=== PATIENT | male | born 1960 | race Caucasian/White ===

== ENCOUNTER → 2020-07-28 07:09 | Outpatient (CLI) | payer BC, SELFPAY ==
[2020-07-28 19:10] LABS: SARS-CoV-2 RNA PCR Negative
== END ==
PROVIDERS: PCP Family Medicine; Visit Provider Surgery
DX: Z01.812 Encounter for preprocedural laboratory examination (principal); Z20.822 Contact with and (suspected) exposure to COVID-19
CPT/HCPCS: C9803; U0003; U0005

== ENCOUNTER 2020-07-31 14:00 | Outpatient (CLI) | payer BC, SELFPAY ==
--- NOTE | 2020-07-31 11:00 | ECG_ITS ---
Measurements Intervals [place] Rate: 72 P: 47 TN: 167 QRS: 1 QRSD: 113 T: -2 QT: 373 QTc: 410 Interpretive Statements SINUS RHYTHM BORDERLINE R WAVE PROGRESSION, ANTERIOR LEADS INFERIOR INFARCT, AGE INDETERMINATE BASELINE ARTIFACT- I, II, AVR, AVL ABNORMAL ECG Electronically Signed On 07-31-2020 11:00:04 PEDIATRIC PSYCHIATRIST by Rodrigo Donald D.O.
== END 2020-07-31 14:01 ==
LOC: ANHSURGERY 08-20 14:01
PROVIDERS: PCP Family Medicine; Visit Provider Surgery
DX: Z01.818 Encounter for other preprocedural examination (principal); I10 Essential (primary) hypertension; R94.31 Abnormal electrocardiogram [ECG] [EKG]
CPT/HCPCS: 93005

== ENCOUNTER 2020-08-01 00:54 | Day surgery (SDC) | payer BC, SELFPAY ==
[2020-07-30 15:11] VITALS: BMI 35.3
[2020-08-01] VITALS (7 sets, daily range): BP systolic 99–152; BP diastolic 74–86; PULSE 65–83; RESP 8–20; TEMP 36.1–36.3; O2SAT 96–97
[2020-08-01] MEDS: LACTATED RINGERS 1,000 ML 30 ML IV CONT (07:20)
--- NOTE | 2020-08-01 07:56 | WPDANESEPPF ---
Anes - Initial Pre Proc Eval Procedure: Operation Date: 08/01/20 08:30 Proposed Procedures p Incision And Drainage Of Complicated Pilonidal Cyst With Abscess - Flako Richardson MD Date/Time: 08/01/20 07:56 Surgeon: Flako Richardson MD Pre Op Diagnosis: Pilonidal Cyst Patient Data Age: 59 Gender: M Height: 5 ft 7 in Weight: 102.3 kg Allergies Allergy/AdvReac Type Severity Reaction Status Date / Time No Known Allergies Allergy Verified 07/30/20 15:06 Home Medications Medication Instructions Recorded Confirmed Type adalimumab 40 mg/0.8 mL 40 mg SUBCUT ONCE 07/13/20 07/30/20 History subcutaneous syringe kit allopurinol 300 mg tablet 300 mg PO DAILY 07/13/20 07/30/20 History amlodipine 10 mg tablet 10 mg PO DAILY 07/13/20 07/30/20 History atorvastatin 20 mg tablet 20 mg PO DAILY 07/13/20 07/30/20 History celecoxib 200 mg capsule 200 mg PO DAILY 07/13/20 07/30/20 History dicyclomine 20 mg tablet 20 mg PO BID PRN 07/13/20 07/30/20 History metoprolol succinate 50 mg 50 mg PO DAILY 07/13/20 07/30/20 History tablet,extended release 24 hr nortriptyline 10 mg capsule 10 mg PO HS 07/13/20 07/30/20 History Patient hx anesthesia problems: none Family hx anesthesia problems: none PMFSH Past Medical History Medical History (Updated 08/01/20 @ 07:46 by Elfego Adkins MD) GERD (gastroesophageal reflux disease) Gout History of kidney stones Hyperlipidemia Hypertension IBS (irritable bowel syndrome) Psoriasis Surgical History Surgical History History of arthroscopic knee surgery History of colonoscopy History of endoscopy Family History Family History Father Acute myocardial infarction Mother Hypertension Social History Social History Smoking status: Never smoker Tobacco type: cigars Alcohol intake: current Living arrangements: with family Additional occupation/education comments: [employer] Spiritual care concerns: No Anes - Eval Final PreProcedure Day of Procedure 08/01/20 07:56 Patient weight: obese Heart: regular rate and rhythm Lungs: clear to auscultation Airway: Mallampati scale class III Neurological: alert and oriented Last oral intake: >/= 8 hours ASA classification: III Emergent: no Anesthetic plan: proceed Anesthesia type and monitoring: general ETT and standard monitoring Informed Consent: The patient's anesthetic plan and its attendant risks and benefits were discussed with the patient/family/POA. Questions were solicited and answers provided to the satisfaction of the patient/family/POA.
--- NOTE | 2020-08-01 08:37 | WPDHPUPDATE1 ---
History and Physical Update Update Date/Time: 08/01/20 08:37 History and Physical has been reviewed, including an updated exam of the patient. There are NO changes in the patient's condition. Risks, benefits, and alternatives have been discussed and questions answered. Patient agrees to proceed with procedure.
[2020-08-01] MEDS: ceFAZolin 2 GM/D5W 50 ML 2 GM/50 ML BAG IVPB (08:56)
[2020-08-01] MEDS: BUPIVACAINE/EPINEPHRINE 0.5% 30 ML VIAL INFILTRATE (09:29)
--- NOTE | 2020-08-01 10:05 | P.OP_ITS ---
Procedure Note - Detailed Date of procedure: 08/01/20 Pre-op diagnosis: Pilonidal Cyst with abscess Pilonidal cyst with abscess Post-op diagnosis: other (Chronic pilonidal cyst, no abscess) Procedure performed: Incision and drainage complicated pilonidal cyst Description of procedure: The patient was taken to surgery and induced into general anesthesia. He was then turned into the prone position and transferred simultaneously onto the operating table. The buttocks were taped apart in the area of the upper gluteal crease. The sacral area was prepped and draped. Palpating over the raised area on the right side of midline created some fluctuance in a thin area of skin in the midline. I placed a probe in this thin area and it went through the epithelium covering the tract easily. Serosanguineous fluid came out with continued palpation. There was quite a bit of fluid in the tract but no pus. This was an improvement from what I had seen in the office. Using a probe, I was easily able to demonstrate a tract heading back to the raised area right of midline more cephalad. I opened the midline portion of the tract. I did not see any sign of malignant degeneration. I continued slowly opening the tract and found a large nest of hair balled up near the raised area on the right. I opened the rest of the tract completely. I removed the accumulation of hair. I checked for any additional tracts or pockets. None were found. I biopsied 2 areas of the tract 1 in the midline and 1 near the right-sided aspect. These were both sent in formalin to pathology. From there, I curetted out the inflammatory granulation tissue covering the pilonidal cyst tract. Bleeding was minimal. I then infiltrated local anesthetic throughout the entire area of the wound. I covered the wound surface with mupirocin and then packed the wound with 2 in iodoform Nu Gauze. Bulky fluff dressing and tape were applied. The patient was returned to a supine position, awakened and taken to recovery in good condition. Sponge and needle counts were correct x2. Anesthesia: GETA and local (0.5% Marcaine with epinephrine) Surgeon: Flako Richardson MD Supply Chain Development Manager: Olga TUTTLE Estimated blood loss (mL): 5 Drains: No Packing: Yes (2 in iodoform Nu Gauze) Pathology: yes (Biopsies of the pilonidal cyst wall x2) Complications: None Condition: stable Disposition: PACU Findings: Chronic pilonidal cyst with large accumulation of hair in the sinus tract.
== END 2020-08-01 11:20 | disposition home or self-care (01) ==
PROVIDERS: PCP Family Medicine; Visit Provider Surgery
PROC: (CPT 10081; principal; 2020-08-01 08:30)
DX: L05.91 Pilonidal cyst without abscess (principal); I10 Essential (primary) hypertension; E78.5 Hyperlipidemia, unspecified; K58.9 Irritable bowel syndrome, unspecified; M10.9 Gout, unspecified; K21.9 Gastro-esophageal reflux disease without esophagitis; L40.9 Psoriasis, unspecified; E66.9 Obesity, unspecified; Z68.35 Body mass index [BMI] 35.0-35.9, adult
CPT/HCPCS: 10081; 88305; A9270; J0330; J0690; J1100; J2250; J2405; J2704; J3010; J7120

== ENCOUNTER → 2021-09-27 08:22 | Outpatient (CLI) | payer BC, SELFPAY ==
--- NOTE | ~2021-09-27 | MR_ITS ---
EXAMINATION: MR lumbar spine wo con DATE: 09/27/2021 08:58 INDICATION: Left-sided low back pain. TECHNIQUE: Magnetic resonance imaging (MRI) of the lumbar spine was performed without intravenous con trast. Sequences included sagittal T2-weighted FSE, sagittal T2-weighted FS FSE, sagittal T1-weighted FSE, and axial T2-weighted FSE. COMPARISON: None FINDINGS: There is 6 degrees dextrocurvature of lumbar spine. There is 3 mm retrolisthesis of L3 on L 4. There are Schmorl's nodes at L1-L2 and L2-L3. There is mildly decreased disc height at L3-L4, brenda rely decreased disc height at L4-L5, and moderately decreased disc height at L5-S1 with endplate najma deling. The distal spinal cord signal intensity is normal. The conus medullaris is at L1-L2. There ar e cysts in the kidneys measuring up to 10 mm on the left. The following disc levels are specifically discussed: L1-L2: There is a left central protrusion. There is mild bilateral facet joint osteoarthritis. There is no neural foraminal stenosis. There is mild central canal stenosis. L2-L3: The disc does not extend beyond the endplate margin. There is mild bilateral facet joint osteo arthritis. There is no neural foraminal stenosis. There is no central canal stenosis. L3-L4: The disc is bulging and has an annular fissure. There is severe bilateral facet joint osteoart hritis. There is moderate bilateral neural foraminal stenosis. There is mild central canal stenosis. L4-L5: The disc is bulging and has an annular fissure. There is severe bilateral facet joint osteoart hritis. There is moderate bilateral neural foraminal stenosis. There is mild central canal stenosis. L5-S1: The disc is bulging and has an annular fissure. There is severe right and mild left facet join t osteoarthritis. There is moderate right and mild left neural foraminal stenosis. There is mild cent ral canal stenosis. IMPRESSION: 1. Severe lumbar spondylosis. Reviewed, dictated and finalized at location B.
== END ==
PROVIDERS: PCP Family Medicine; Visit Provider Family Medicine
DX: R20.2 Paresthesia of skin (principal); M47.896 Other spondylosis, lumbar region
CPT/HCPCS: 72148

== ENCOUNTER 2024-01-27 09:12 | Outpatient (CLI) | payer OTHER, SELFPAY ==
--- NOTE | ~2024-01-27 | MR_ITS ---
Procedure: MR lumbar spine wo con Ordering provider: Catrachita Armenta MD History: . Lumbar back pain . Comparison: None. Technique: MRI thoracic spine without contrast. FINDINGS: SPINAL CORD: Normal. Cord ends at the level of L1-L2. VERTEBRAL BODIES: Normal height and alignment. No compression fracture. Normal marrow signal. DISK SPACES: Endplate changes are seen at the level of L3-L4, and L4-L5. Narrowing of the disc L3-L4, and L4-L5. T12-L1: Normal. L1-L2: Small focal central disc protrusion. L2-L3: Thickening of the ligamenta flava with bilateral facet joint disease. L3-L4: Moderate spinal canal stenosis. Thickening of the ligamenta flava. Diffuse disc bulge. Bilater al narrowing of the foramina with root compression. Bilateral facet joint disease. L4-L5: Severe spinal canal stenosis. Thickening of the ligamenta flava. Diffuse disc bulge with poste rior osteophytes. Narrowing of the foramina with root compression bilaterally more on the left side. L5-S1: A right posterolateral disc bulge with narrowing of the right intervertebral foramen and with nerve root compression. Bilateral facet joint disease. PARASPINOUS SOFT TISSUES: Bilateral renal cysts. IMPRESSION: No no acute osseous abnormalities. Multilevel degenerative disc disease with variable degrees of spinal canal stenosis, intervertebral f oraminal narrowing and the root compression. Reviewed, dictated and finalized at location A. IMPRESSION: No no acute osseous abnormalities. Multilevel degenerative disc disease with variable degrees of spinal canal sten osis, intervertebral foraminal narrowing and the root compression.
== END 2024-01-27 09:13 ==
PROVIDERS: PCP Family Medicine; Visit Provider Family Medicine
DX: M51.36 Other intervertebral disc degeneration, lumbar region (principal)
CPT/HCPCS: 72148

== ENCOUNTER 2024-04-27 13:22 | Outpatient (CLI) | payer OTHER, SELFPAY ==
--- NOTE | ~2024-04-27 | CT_ITS ---
EXAMINATION: CT abdomen pelvis wo/w con DATE: 04/27/2024 14:19 INDICATION: Gross hematuria. TECHNIQUE: Computed tomography (CT) of the abdomen and pelvis was performed without and with intraven ous contrast using a total of 130 mL Omnipaque-350 intravenous contrast with a double-bolus technique for simultaneous opacification of the renal parenchyma and renal collecting system. Automated exposu re control and iterative reconstruction technique were employed. The dose-length product was 1908.05 mGy-cm. COMPARISON: None FINDINGS: The visualized portions of the lung bases demonstrate mild atelectasis. No pleural effusion. The hear t size is normal. There are coronary artery calcifications. No pericardial effusion. The liver, gallb ladder, spleen, pancreas, and adrenal glands are normal. There are cysts in the kidneys measuring up to 19 mm on the left. There are greater than 10 stones in right kidney measuring up to 5 mm. There ar e greater than 10 stones in left kidney measuring up to 5 mm. The ureters are well opacified and are normal. The bladder is normal. The prostate is mildly enlarged. There are no dilated loops of bowel. The appendix is normal. There are no pathologically enlarged lymph nodes. There is no free intraperit smith fluid. There is lumbar dextroscoliosis and severe spondylosis. IMPRESSION: 1. Bilateral nonobstructing kidney stones. Reviewed, dictated and finalized at location A. TRIC SHIPYARD OPERATOR
[2024-04-27 13:53] LABS: Estimated Glomerular Filt Rate > 60
== END 2024-04-27 13:23 | disposition home or self-care (01) ==
LOC: MICIMG 13:22
PROVIDERS: PCP Family Medicine; Visit Provider Nurse Practitioner Family
DX: R31.0 Gross hematuria (principal); N20.0 Calculus of kidney
CPT/HCPCS: 74178; Q9967

== ENCOUNTER 2024-05-07 09:48 | Outpatient (CLI) | payer OTHER, SELFPAY ==
--- NOTE | ~2024-05-07 | MR_ITS ---
MRI of the cervical spine Clinical History: Cervical myelopathy Technique: Axial T2-weighted and gradient images, and sagittal T1-weighted, T2-weighted, and STIR sariah ges were acquired. Findings: There is no fracture in the cervical spine. There is minimal grade 1 anterolisthesis of C4 over C5. No suspicious bone marrow signal reality seen. At C2-C3, there is no disc bulge or herniation. There is mild left facet arthropathy. No central steven l stenosis, cord compression, or neural foraminal narrowing. At C3-C4, there is minimal disc bulge with mild bilateral facet arthropathy. No central canal stenosi s, cord compression, or neural foraminal narrowing. At C4-C5, there is minimal disc ossify complex. There is right facet arthropathy with mild right neur al foraminal narrowing. Left neural foramen preserved. No central canal stenosis or cord compression. At C5-C6, there is moderate degenerative disc narrowing. No spinal canal stenosis or cord compression . There is bilateral neural foraminal narrowing with bilateral facet arthropathy. At C6-C7, there is advanced degenerative disc narrowing, with mild disc bulge. No spinal canal stenos is or cord compression. There is bilateral neural foraminal narrowing with mild facet arthropathy. No abnormal signal seen in the spinal cord. Paravertebral soft tissues are unremarkable. Impression: Mild to moderate degenerative spondylosis overall, as detailed above, with multilevel neural foramina l narrowing present at the lower cervical spine. Reviewed, dictated and finalized at [facility]. ING TECHNICIAN Impression: Mild to moderate degenerative spondylosis overall, as detailed above, with mult ilevel neural foraminal narrowing present at the lower cervical spine.
== END 2024-05-07 09:49 | disposition home or self-care (01) ==
LOC: MICIMG 09:49
PROVIDERS: PCP Neurological Surgery; Visit Provider Neurological Surgery
DX: G95.9 Disease of spinal cord, unspecified (principal); M47.892 Other spondylosis, cervical region
CPT/HCPCS: 72141